=== PATIENT | male | born 1940 | race Caucasian/White ===

== ENCOUNTER → 2020-09-14 | Outpatient (CLI) | payer MEDICARE, OTHER ==
[~2020-09-14] MED LIST: ADULT LOW DOSE81 MG PO; AMITRIPTYLINE H25 M2 PO; AMITRIPTYLINE H25 M4 PO; ASPIRIN325 PO; AUGMENTIN 875875 MG PO; CARDURA8 MG PO; CARVEDILOL25 MG PO; CARVEDILOL6.25 MG PO; COREG25 MG PO; COZAAR 50 MG TA50 M2 PO; FLOMAX0.4 MG PO; HYDROCODONE-AP1 EAC6 PO; LEVSIN; LISINOPRIL5 MG PO; LOSARTAN POTAS100 MG PO; MECLIZINE HCL25 M1 PO; MELATONIN3 MG PO; MULTIVITAMINS PO; NORCO 5-325 TA1 EACH PO; NORVASC2.5 MG PO; NORVASC5 MG PO; OSCIMIN SR0.375 MG PO; OXYBUTYNIN 5 MG5 M2 PO; PHENERGAN25 MG RE; PROSCAR 5MG TABL5 M1 PO; RYTHMOL 150MG150 M1 PO; RYTHMOL SR225 MG PO; RYTHMOL225 MG PO; TRAMADOL 50 MG50 MG PO; VALIUM5 MG PO; XARELTO10 MG PO; [UNRECOGNIZED DRUG - REMARK]
== END ==
LOC: M.MRI 09-07 11:30
PROVIDERS: ATTEND Physician Assistant
DX: M51.17 Intervertebral disc disorders with radiculopathy, lumbosacral region (principal); M47.26 Other spondylosis with radiculopathy, lumbar region; M48.061 Spinal stenosis, lumbar region without neurogenic claudication; M25.78 Osteophyte, vertebrae; M51.15 Intervertebral disc disorders with radiculopathy, thoracolumbar region